=== PATIENT | male | born 1990 | race African-American/Black ===

== ENCOUNTER 2018-06-22 20:18 | Emergency (ER) | payer SELFPAY ==
[2018-06-22 20:23] VITALS: BP 119/74; PULSE 74; TEMP 98.5; BMI 24.3
--- NOTE | 2018-06-22 20:28 | PDOC ---
History of Present Illness - General Chief Complaint: Vomiting/Diarrhea Stated Complaint: VOMTING/STOMACH PAIN Time Seen by Provider: 06/22/18 20:28 History Source: Patient Exam Limitations: No Limitations - History of Present Illness Initial Comments: 28 yo M w no sig pmh presents to the ER via private auto with 5 days of maria antonia- umbilical and epigastric post-prandial abdominal pain associated with nausea and NBNB vomiting. The patient states the pain has been worsening for the past 5 days and wanted to come to the ER to have his abdomen evaluated. He endorses the pain as worse after he finishes eating. He denies having any fevers, chills , diarrhea or constipation. The patient has not taken any medications for his pain and denies any radiation to the back. The patient states whatever he eats he vomits and cannot keep any thing down. Patient has no PCP and would like to be referred to a doctor. PCP: None PSH: inguinal hernia repair Social Hx: Drinks recreationally, denies smoking or other substance usage. Allergies: NKA, NKDA Past History - Past Medical History Allergies/Adverse Reactions: Allergies Allergy/AdvReac Type Severity Reaction Status Date / Time No Known Allergies Allergy Verified 06/22/18 20:23 Home Medications: Ambulatory Orders Mag Hydrox/Al Hydrox/Simeth [Mylanta Suspension -] 30 ml PO Q6H #1 bottle Metoclopramide HCl [Reglan -] 10 mg PO DAILY #7 tablet 06/22/18 Omeprazole Magnesium [Prilosec] 10 mg PO DAILY #7 suspdr.pkt 06/22/18 COPD: No CHF: No - Suicide/Smoking/Psychosocial Hx Smoking History: Never smoked Have you smoked in the past 12 months: No Information on smoking cessation initiated: No Hx Alcohol Use: No Drug/Substance Use Hx: No Review of Systems - Review of Systems Able to Perform ROS?: Yes Comments:: CONSTITUTIONAL: Present: Fatigue Absent: fever, no chills EYES: Absent: visual changes ENT: Absent: ear pain, no sore throat CARDIOVASCULAR: Absent: chest pain, no palpitations RESPIRATORY: Absent: cough, no SOB GI: Present: Abdominal pain, nausea, vomiting Absent: no constipation, no diarrhea GENITOURINARY: Absent: dysuria, no frequency, no hematuria MUSKULOSKELETAL: Absent: back pain, no arthralgia, no myalgia SKIN: Absent: rash NEURO: Absent: headache *Physical Exam - Vital Signs Last Vital Signs Temp Pulse Resp BP Pulse Ox 98.5 F 74 16 119/74 100 06/22/18 20:20 06/22/18 20:20 06/22/18 20:20 06/22/18 20:20 06/22/18 20:20 - Physical Exam Comments: GENERAL: Well-appearing, well-nourished. No apparent distress. HEENT: Normocephalic, atraumatic. PERRL, EOM intact. CARDIOVASCULAR: Normal S1, S2. Regular rate and rhythm. PULMONARY: No evidence of respiratory distress. Lungs clear to auscultation bilaterally. No wheezing, rales or rhonchi. ABDOMEN: Mild epigastric TTP. Abdomen is still soft and non-distended. EXTREMITIES: Normal ROM in all four extremities. No gross deformities. SKIN: Warm, dry. No rash NEUROLOGICAL: No focal neurological deficits. Procedures - Bedside Ultrasound Bedside Ultrasound: Gallbladder Remarks: Bedside RUQ US was completely normal. Calculations could not be taken bc machine calc function was not working. The gallbladder wall looked normal in size and caliber and the gallbladder contained no stones. There was no wall edema, no pericholecystic fluid, and there was a negative sono conteh sine. CBD appeared normal in caliber. Impression: Normal exam ED Treatment Course - LABORATORY CBC & Chemistry Diagram: 06/22/18 20:56 06/22/18 20:56 Medical Decision Making - Medical Decision Making 28 yo M w no sig pmh presents to the ER via private auto with 5 days of maria antonia- umbilical and epigastric post-prandial abdominal pain associated with nausea and NBNB vomiting. The patient states the pain has been worsening for the past 5 days and wanted to come to the ER to have his abdomen evaluated. He endorses the pain as worse after he finishes eating. He denies having any fevers, chills , diarrhea or constipation. The patient has not taken any medications for his pain and denies any radiation to the back. The patient states whatever he eats he vomits and cannot keep any thing down. VS: WNL DDx IBNLT: Gastroenteritis/food poisoning, pancreatitis, cholecystitis, gastritis, GERD/PUD, dehydration, electrolyte/metabolic derangement. Plan: Labs, Urine, ekg, analgesia, anti-emetics, IV hydration, GI cocktail, bedside US, re-assess. Patient has no PCP and would like to be referred to a doctor - will refer to resident clinic across the street. EKG: NS UA: Normal and not suggestive of UTI. Bedside RUQ US: Normal, no stones, wall edema, maria antonia chol fluid, neg sono conteh. Labs: CBC normal. CMP normal. Patient feels better and requests discharge. Will send reglan, maalox, and prilosec to his pharmacy and DC with GI and PCP fu. *DC/Admit/Observation/Transfer Diagnosis at time of Disposition: Abdominal pain, Nausea & vomiting - Discharge Dispostion Disposition: HOME Condition at time of disposition: Improved Decision to Admit order: No - Prescriptions Prescriptions: Mag Hydrox/Al Hydrox/Simeth [Mylanta Suspension -] 30 ml PO Q6H #1 bottle Metoclopramide HCl [Reglan -] 10 mg PO DAILY #7 tablet Omeprazole Magnesium [Prilosec] 10 mg PO DAILY #7 suspdr.pkt - Referrals Referrals: [facility] [place] [facility] [place] [Provider Group] Momo Lizama MD [Staff Physician] - - Patient Instructions Printed Discharge Instructions: Gastroesophageal Reflux Disease (Alternative Therapy), Heartburn -- Overview, DI for Epigastric Pain Additional Instructions: You came into the ER with abdominal pain, nausea and vomiting. We looked at your blood and urine and found no abnormalities. We believe your pain is probably gastric reflux in nature. We are going to refer you to a radiotelephone operator - Dr. Lizama - to call and schedule an appointment with. We sent 3 medications to your [facility] pharmacy on . Please make sure to go pick them up. Drink plenty of fluids. Take maalox, zantac, ranitidine, and tylenol as needed for discomfort. We are giving you the number of the clinic across the street for you to call and schedule an appointment with in the next 3 to 5 days to make sure you are being taken care of and getting better. Please make sure to call and schedule an appointment. Come back to the ER immediately if your pain worsens, you start vomiting blood, or have any other new or worsening concerns. Thank you for coming to the [facility] ER. We hope you feel better soon! Print Language: SPANISH - Post Discharge Activity
--- NOTE | 2018-06-22 20:30 | PDOC ---
Attending Attestation - HPI HPI: 06/22/18 21:01 The patient is a 28 year old male with a past medical history of hernia surgery (6 years ago) here today for evaluation of nausea and vomiting. The patient reports that he has had nausea and vomiting for the past 5 days and that it has been getting worse. He also notes periumbilical pain. Patient denies headache, lightheadedness. Denies fever, chills. Denies chest pain, shortness of breath. Denies nausea, vomiting, diarrhea. Denies urinary symptoms. Allergies: NKA PCP: none - Physicial Exam PE: 06/22/18 21:07 GENERAL: Awake, alert, and fully oriented, in no acute distress HEAD: No signs of trauma EYES: PERRLA, EOMI, sclera anicteric, conjunctiva clear ENT: Auricles normal inspection, hearing grossly normal, nares patent, oropharynx clear without exudates. Moist mucosa NECK: Normal ROM, supple, no lymphadenopathy, JVD, or masses LUNGS: Breath sounds equal, clear to auscultation bilaterally. No wheezes, and no crackles HEART: Regular rate and rhythm, normal S1 and S2, no murmurs, rubs or gallops ABDOMEN: +epigastric tenderness. Soft, normoactive bowel sounds. No guarding, no rebound. No masses EXTREMITIES: Normal range of motion, no edema. No clubbing or cyanosis. No cords, erythema, or tenderness NEUROLOGICAL: Cranial nerves II through XII grossly intact. Normal speech, normal gait SKIN: Warm, Dry, normal turgor, no rashes or lesions noted. <Kody Zavala - Last Filed: 06/22/18 22:04> - Resident Resident Name: German Littlejohn - ED Attending Attestation I have performed the following: I have examined & evaluated the patient, The case was reviewed & discussed with the resident, I agree w/resident's findings & plan (w) - Medical Decision Making 06/22/18 20:52 Pt comes with nausea and vomiting; afebrile and VSS 06/22/18 21:43 Lbas normal; pt has ketones in urine. We will treat with a 2nd L of D5-NSS 06/22/18 22:21 Pt is feeling vastly improved. Once he gets his 2nd bolus he will be d/c'd with GI follow up. <Yennifer Branch - Last Filed: 06/22/18 22:23> Attestations - Attestations 06/22/18 21:01 Documentation prepared by MAURO Tyler, acting as medical instructor for Yennifer Branch MD. <Kody Zavala - Last Filed: 06/22/18 22:04>
[2018-06-22] MEDS ORDERED: KETOROLAC TROMETHAMINE 30 MG/1 ML VIAL IVPUSH ONE (20:38)
[2018-06-22] MEDS ORDERED: SODIUM CHLORIDE 1,000 ML IV STA (20:38)
[2018-06-22] MEDS ORDERED: ONDANSETRON 4 MG/2 ML VIAL IVPUSH ONE (20:39)
[2018-06-22] MEDS ORDERED: KETOROLAC TROMETHAMINE 30 MG/1 ML VIAL ONE (20:50)
[2018-06-22] MEDS ORDERED: ONDANSETRON 4 MG/2 ML VIAL ONE (20:50)
[2018-06-22] MEDS ORDERED: FAMOTIDINE 20 MG/50 ML IVPB 20 MG/50 ML MG IVPB ONE ×2 (20:57→21:00)
[2018-06-22 21:04] LABS: BASO % 0.5 % (0-2.0); EOS % 2.3 % (0-4.5); HEMATOCRIT 44.6 % (35.4-49); HEMOGLOBIN 15.1 GM/dL (11.7-16.9); LYMPH % 20.2 % (8-40); MCH 30.1 pg (25.7-33.7); MCHC 33.7 g/dl (32.0-35.9); MEAN CELL VOLUME 89.1 fl (80-96); MEAN PLT VOLUME 8.1 fl (7.5-11.1); MONO % 5.4 % (3.8-10.2); NEUT % 71.6 % (42.8-82.8); PLATELET COUNT 283 K/MM3 (134-434); RDW 13.3 % (11.9-15.9); WHITE BLOOD COUNT 7.7 K/mm3 (4.0-10.0)
[2018-06-22 21:07] LABS: EPI CELLS 0.9 /HPF (0-5/HPF); PH,URINE >= 9.0 (5.0-8.0); URINE APPEARANCE TURBID; URINE BACTERIA 0.7 /hpf (NEGATIVE); URINE BILIRUBIN NEGATIVE (NEGATIVE); URINE CASTS 5 /hpf (0-8); URINE COLOR YELLOW; URINE GLUCOSE (UA) NEGATIVE (NEGATIVE); URINE KETONE 1+ (NEGATIVE); URINE LEUK ESTERASE TRACE (NEGATIVE); URINE NITRITE NEGATIVE (NEGATIVE); URINE PROTEIN 1+ (NEGATIVE); URINE RBC 3 /hpf (0-4); URINE WBC 0 /hpf (0-5)
[2018-06-22 21:31] LABS: ALBUMIN 4.1 g/dl (3.4-5.0); ALK PHOS 68 U/L (45-117); ANION GAP 7 MMOL/L (8-16); BILIRUBIN,TOTAL 0.4 mg/dL (0.2-1); BLOOD UREA NITROGEN 14 mg/dL (7-18); CALCIUM 9.6 mg/dL (8.5-10.1); CHLORIDE 100 mmol/L (98-107); CO2 33 mmol/L (21-32); GLUCOSE,RANDOM 94 mg/dL (74-106); LIPASE 158 U/L (73-393); POTASSIUM 3.5 mmol/L (3.5-5.1); SGOT/AST 23 U/L (15-37); SGPT/ALT 31 U/L (13-61); SODIUM 140 mmol/L (136-145); TOT PROT 8.1 g/dl (6.4-8.2)
[2018-06-22] MEDS ORDERED: MAG HYDROX/AL HYDROX/SIMETH -MYLANTA- ORAL SUSPENSION PO ONE (21:32)
[2018-06-22] MEDS ORDERED: ACETAMINOPHEN 1000 MG/100 ML VIAL (NON FORMULARY) IVPB ONE (21:34)
[2018-06-22] MEDS ORDERED: DEXTROSE 5%-NORMAL SALINE 1,000 ML IV ONE (21:43)
[2018-06-22] MEDS ORDERED: ACETAMINOPHEN INJECTION 100 ML IVPB ONE (21:51)
[2018-06-22] MEDS ORDERED: MAG HYDROX/AL HYDROX/SIMETH 30 ML UNIT-DOSE CUP ONE (21:52)
[2018-06-22] MEDS ORDERED: METOCLOPRAMIDE HCL INJECTION 10 MG/2 ML VIAL IVPUSH ONE (22:30)
[2018-06-22] MEDS ORDERED: METOCLOPRAMIDE HCL INJECTION 10 MG/2 ML VIAL ONE (22:47)
--- NOTE | 2018-06-23 10:28 | EKG ---
Test Reason : Blood Pressure : / mmHG Vent. Rate : 074 BPM Atrial Rate : 074 BPM P-R Int : 108 ms QRS Dur : 100 ms QT Int : 392 ms P-R-T Axes : 061 021 010 degrees QTc Int : 435 ms SINUS RHYTHM WITH SHORT TN MODERATE VOLTAGE CRITERIA FOR LVH, MAY BE NORMAL VARIANT NONSPECIFIC ST AND T WAVE ABNORMALITY ABNORMAL ECG NO PREVIOUS ECGS AVAILABLE Confirmed by IHSAN COOK MD ([id number]) on 06/23/2018 10:28:22 AM Referred By: Confirmed By:IHSAN COOK MD
== END 2018-06-22 23:23 | disposition home or self-care (01) ==
LOC: JER 20:18
PROC: 3E0337Z Introduction of Electrolytic and Water Balance Substance into Peripheral Vein, Percutaneous Approach (ICD-10-PCS; principal; 2018-06-22)
PROC: 3E0337Z Introduction of Electrolytic and Water Balance Substance into Peripheral Vein, Percutaneous Approach (ICD-10-PCS; 2018-06-22)
PROC: 3E033GC Introduction of Other Therapeutic Substance into Peripheral Vein, Percutaneous Approach (ICD-10-PCS; 2018-06-22)
PROC: 3E033GC Introduction of Other Therapeutic Substance into Peripheral Vein, Percutaneous Approach (ICD-10-PCS; 2018-06-22)
PROC: 3E033NZ Introduction of Analgesics, Hypnotics, Sedatives into Peripheral Vein, Percutaneous Approach (ICD-10-PCS; 2018-06-22)
PROC: 3E0333Z Introduction of Anti-inflammatory into Peripheral Vein, Percutaneous Approach (ICD-10-PCS; 2018-06-22)
PROC: BF43ZZZ Ultrasonography of Gallbladder and Bile Ducts (ICD-10-PCS; 2018-06-22)
DX: R10.9 Unspecified abdominal pain (principal); R11.2 Nausea with vomiting, unspecified
CPT/HCPCS: 36415; 80053; 81003; 83690; 85025; 93005; 93010; 99283-25; J0131; J7030